=== PATIENT | male | born 1985 | race Caucasian/White ===

== ENCOUNTER 2021-09-08 07:17 | Day surgery (SDC) | payer OTHER ==
[~2021-09-08] VITALS: Ht 182.9 cm; Wt 98.3 kg
== END 2021-09-08 10:27 | disposition home or self-care (01) ==
LOC: ORSCSDS 07:17
PROVIDERS: Orthopaedic Surgery
PROC: 01S40ZZ Reposition Ulnar Nerve, Open Approach (ICD-10-PCS; principal; 2021-09-08 08:30)
DX: G56.21 Lesion of ulnar nerve, right upper limb (principal)
CPT/HCPCS: A9270; J1100; J1885; J2250; J2405; J2704; J2795; J3010; J7120